=== PATIENT | female | born 1950 | race Caucasian/White ===

== ENCOUNTER 2016-05-24 05:39 | Inpatient (IN) | payer MEDICARE, OTHER ==
[~2016-05-24] VITALS: Ht 157.5 cm; Wt 78.2 kg
[~2016-05-24 05:39] MED LIST: ACET500C4 PO; CeFAZolin 2 GM/DEXTROSE 50 ML IV ONE; RINGERS SOLUTION,LACTATED 1,000 ML IV ONE; TRAM50TA4 PO
[2016-05-24] MEDS ORDERED: RINGERS SOLUTION,LACTATED 1,000 ML IV ONE (05:48)
[2016-05-24] MEDS ORDERED: CeFAZolin 2 GM/DEXTROSE 50 ML IV ONE (06:00)
[2016-05-24] MEDS ORDERED: CLINDAMYCIN 600 MG/D5% WATER 50 ML IV ONE (07:30)
[2016-05-24] MEDS ORDERED: GELATIN SPONGE,ABSORBABLE 100 MM TP ONE (07:32)
[2016-05-24] MEDS ORDERED: BUPIVACAINE HCL/PF 0.5% 30 ML VIAL ONE (07:32)
[2016-05-24] MEDS ORDERED: RINGERS SOLUTION,LACTATED 2,000 ML IV ONE (07:32)
[2016-05-24] MEDS ORDERED: THROMBIN, BOVINE 20000 UNITS/VIAL POWDER TP ONE (07:34)
[2016-05-24] MEDS ORDERED: BUPIVACAINE HCL/PF 0.25% 30 ML VIAL ONE (07:36)
[2016-05-24] MEDS ORDERED: LIDOCAINE HCL 1%/EPI 1:200,000/PF 30 ML VIAL ONE (08:53)
[2016-05-24] MEDS ORDERED: PROPOFOL 1000 MG/ISO-OSM 200 ML IV ONE (08:53)
[2016-05-24] MEDS ORDERED: MEPERIDINE-PF 25 MG/ML SYRINGE IVP PRN (10:30)
[2016-05-24] MEDS ORDERED: FentaNYL CITRATE-PF 100 MCG/2 ML VIAL IVP PRN (10:30)
[2016-05-24] MEDS ORDERED: HYDROmorphone HCL 50 MG/NS/PF 100 ML IV PRN (10:38)
[2016-05-24] MEDS ORDERED: DEXTROSE 5%-0.45% SODIUM CHL 1,000 ML IV PRN (10:38)
[2016-05-24] MEDS ORDERED: NALOXONE HCL 0.4 MG/ML VIAL IVP PRN (10:45)
[2016-05-24] MEDS ORDERED: NALOXONE HCL 0.4 MG/ML VIAL IM PRN (10:45)
[2016-05-24] MEDS ORDERED: NALBUPHINE HCL 10 MG/ML VIAL IVP PRN (10:45)
[2016-05-24] MEDS ORDERED: METOCLOPRAMIDE HCL 5 MG/ML 2 ML VIAL IVP PRN (10:45)
[2016-05-24] MEDS ORDERED: ONDANSETRON HCL 4 MG/2 ML VIAL IVP PRN ×2 (10:45→14:30)
[2016-05-24] MEDS ORDERED: PROMETHAZINE HCL 12.5 MG in SODIUM CHLORIDE 0.9% 50 ML IV PRN (10:45)
[2016-05-24] MEDS: ACETAMINOPHEN 1000 MG/ISO-OSM 100 ML IV SCH ×3 (10:45→22:31)
[2016-05-24] MEDS ORDERED: CLINDAMYCIN PHOS 150 MG/ML 4 ML VIAL ONE ×2 (11:46→11:49)
[2016-05-24] MEDS ORDERED: SODIUM CHLORIDE 0.9% 50 ML ONE (11:49)
[2016-05-24] MEDS ORDERED: SENNA 187 MG TABLET PO PRN (14:30)
[2016-05-24] MEDS ORDERED: BISACODYL 10 MG RECTAL RECTAL SUPPOSITORY PR PRN (14:30)
[2016-05-24] MEDS ORDERED: HYDROmorphone 2 MG/ML SYRINGE ONE (14:51)
[2016-05-24] MEDS: HYDROmorphone 2 MG/ML SYRINGE IVP PRN ×2 (14:51→15:01)
[2016-05-24] MEDS ORDERED: PROMETHAZINE HCL 25 MG/ML VIAL IM PRN (15:00)
[2016-05-24] MEDS ORDERED: PROMETHAZINE HCL 25 MG/ML VIAL ONE (15:04)
[2016-05-24 15:55] VITALS: BP 139/83
[2016-05-24] MEDS: DEXTROSE 5%-0.45% SODIUM CHL 1,000 ML IV SCH (16:15)
[2016-05-24] MEDS: CLINDAMYCIN 600 MG/D5% WATER 50 ML IV SCH ×2 (16:15→22:31)
[2016-05-24] MEDS: CYCLOBENZAPRINE HCL 10 MG TABLET PO SCH (18:03)
[2016-05-24] MEDS: OXYGEN THERAPY IH SCH (20:00)
[2016-05-24 20:10] VITALS: BP 139/97
[2016-05-24] MEDS ORDERED: SUCCINYLCHOLINE CHLORIDE 20 MG/ML 10 ML VIAL IVP ONE (23:47)
[2016-05-24] MEDS ORDERED: KETAMINE HCL 50 MG/ML 10 ML VIAL IVP ONE (23:47)
[2016-05-24] MEDS ORDERED: LIDOCAINE HCL/PF 2% 5 ML VIAL IM ONE (23:47)
[2016-05-24] MEDS ORDERED: PROPOFOL 1% 20 ML VIAL IVP ONE (23:47)
[2016-05-24] MEDS ORDERED: DEXAMETHASONE SOD PHOS 4 MG/ML VIAL IVP ONE (23:47)
[2016-05-24] MEDS ORDERED: MIDAZOLAM HCL 2 MG/2 ML VIAL IVP ONE (23:47)
[2016-05-24] MEDS ORDERED: METOCLOPRAMIDE HCL 5 MG/ML 2 ML VIAL IVP ONE (23:47)
[2016-05-24] MEDS ORDERED: PHENYLEPHRINE HCL 10 MG/ML VIAL IVP ONE (23:47)
[2016-05-24] MEDS ORDERED: FentaNYL CITRATE-PF 250 MCG/5 ML VIAL IVP ONE (23:47)
[2016-05-24] MEDS ORDERED: HYDROmorphone 2 MG/ML SYRINGE IVP ONE (23:47)
[2016-05-24] MEDS ORDERED: ONDANSETRON HCL 4 MG/2 ML VIAL IVP ONE (23:47)
[2016-05-25] VITALS (7 sets, daily range): BP systolic 99–141; BP diastolic 63–83
[2016-05-25] MEDS: CYCLOBENZAPRINE HCL 10 MG TABLET PO SCH ×4 (00:04→20:52)
[2016-05-25] MEDS: DEXTROSE 5%-0.45% SODIUM CHL 1,000 ML IV SCH (02:42)
[2016-05-25] MEDS: CLINDAMYCIN 600 MG/D5% WATER 50 ML IV SCH (03:50)
[2016-05-25] MEDS: ACETAMINOPHEN 1000 MG/ISO-OSM 100 ML IV SCH ×2 (03:50→10:47)
[2016-05-25 06:27] LABS: BASOPHILS # (AUTO) 0.01 K/uL (0.00-0.20); BASOPHILS % (AUTO) 0.1 % (0.0-2.0); EOSINOPHILS % (AUTO) 0.02 % (1.0-6.0); HEMATOCRIT 31.2 % (36-46); HEMOGLOBIN 10.6 g/dL (12.0-16.0); LYMPHOCYTES % (AUTO) 8.7 % (22.0-44.0); MEAN CORPUSCULAR HEMOGLOBIN 32.1 pg (26.0-34.0); MEAN CORPUSCULAR VOLUME 94 fL (80-100); MONOCYTES # (AUTO) 0.7 K/uL (0.1-1.0); MONOCYTES % (AUTO) 5.7 % (2.0-9.0); NEUTROPHILS # (AUTO) 10.2 K/uL (1.8-7.7); PLATELET COUNT (AUTO) 190 K/uL (150-450); RED CELL DISTRIBUTION WIDTH 13.1 % (11.5-14.5); WHITE BLOOD COUNT (AUTO) 11.9 K/uL (4.5-11.0)
[2016-05-25 06:38] LABS: NEUTROPHILS % (AUTO) 85.4 % (40.0-70.0)
[2016-05-25] MEDS: OXYGEN THERAPY IH SCH ×2 (08:00→21:03)
[2016-05-25] MEDS: BISACODYL 5 MG EC TABLET PO SCH (08:06)
[2016-05-25] MEDS ORDERED: OxyCODONE HCL/ACETAMINOPHEN 10-325 MG TABLET PO PRN (14:00)
[2016-05-25] MEDS ORDERED: HYDROmorphone HCL 50 MG/NS/PF 100 ML IV PRN (14:30)
[2016-05-25] MEDS: OxyCODONE HCL/ACETAMINOPHEN 10-325 MG TABLET PO PRN ×2 (17:17→21:03)
[2016-05-25] MEDS: HYDROmorphone 2 MG/ML SYRINGE IVP PRN (19:11)
[2016-05-26] MEDS: HYDROmorphone 2 MG/ML SYRINGE IVP PRN ×2 (00:51→04:02)
[2016-05-26 00:59] VITALS: BP 118/72
[2016-05-26 04:04] VITALS: BP 133/87
[2016-05-26] MEDS: OxyCODONE HCL/ACETAMINOPHEN 10-325 MG TABLET PO PRN ×2 (05:07→08:54)
[2016-05-26 07:30] VITALS: BP 97/72
[2016-05-26] MEDS: OXYGEN THERAPY IH SCH (08:00)
[2016-05-26] MEDS: CYCLOBENZAPRINE HCL 10 MG TABLET PO SCH (08:30)
[2016-05-26] MEDS: BISACODYL 5 MG EC TABLET PO SCH (08:30)
[2016-05-26] MEDS ORDERED: MAG HYDROX/AL HYDROX/SIMETH ES 30 ML SUSPENSION UDCUP PO PRN (09:15)
[2016-05-26 09:38] VITALS: BP 118/76
[2016-05-26] MEDS ORDERED: PERCT PO ×2 (09:38→09:39)
== END 2016-05-26 11:50 | disposition home or self-care (01) | DRG 458 ==
LOC: 4E 05:39
PROVIDERS: ADMIT Orthopaedic Surgery; ATTEND Orthopaedic Surgery
PROC: 0ST20ZZ Resection of Lumbar Vertebral Disc, Open Approach (ICD-10-PCS; 2016-05-24)
PROC: 0SG10A0 Fusion of 2 or more Lumbar Vertebral Joints with Interbody Fusion Device, Anterior Approach, Anterior Column, Open Approach (ICD-10-PCS; principal; 2016-05-24 09:06)
DX: M41.80 Other forms of scoliosis, site unspecified (principal); M54.16 Radiculopathy, lumbar region; M48.06 Spinal stenosis, lumbar region; Z88.1 Allergy status to other antibiotic agents; Z82.49 Family history of ischemic heart disease and other diseases of the circulatory system; Z98.890 Other specified postprocedural states
CPT/HCPCS: 87081; 93005; 97161; 97165; 97530; 97535; C1713; J0131; J0330; J0690; J1100; J1170; J2250; J2370; J2405; J2550; J2704; J2765; J3010; J3490; J7050; J7120; S0077